=== PATIENT | male | born 1960 | race Caucasian/White ===

== ENCOUNTER → 2016-11-22 | Outpatient (CLI) | payer MEDICARE ==
--- NOTE | 2016-11-22 11:57 | KCIC ---
Hepatic Doppler ultrasound HISTORY: Transaminase elevation. TECHNIQUE: Grayscale, color Doppler and duplex analysis. FINDINGS: The liver demonstrates coarse echogenicity compatible with fatty infiltration. Liver measures 17 cm longitudinal. The study accuracy is compromised by large body habitus and overlying bowel gas. The proximal aorta is not visualized. Mid to distal aorta demonstrate no evidence of an aneurysm. Inferior vena cava appears grossly patent where visualized. The hepatic veins demonstrate hepatofugal flow. The portal veins demonstrate normal hepatopedal flow. Hepatic artery velocity is 84 cm/s. The spleen measures 13.4 cm, mildly enlarged. IMPRESSION: 1. Coarse echogenicity of the liver compatible with fatty infiltration. 2. Mild splenomegaly. Electronically signed by: Eugenio Stephens MD (11/22/2016 11:53 AM) [id number]
== END | disposition home or self-care (01) ==
LOC: KCIC US 07:45
PROVIDERS: ATTEND Family Medicine
DX: R74.0 Nonspecific elevation of levels of transaminase and lactic acid dehydrogenase [LDH] (principal); K76.0 Fatty (change of) liver, not elsewhere classified; R16.1 Splenomegaly, not elsewhere classified
CPT/HCPCS: 93975

== ENCOUNTER → 2021-02-01 | Outpatient (CLI) | payer BC, MEDICARE ==
--- NOTE | 2021-02-01 09:55 | KCIC ---
EXAMINATION: US ABDOMEN COMPLETE INDICATION: 60 years, Male, elevated liver enzymes. COMPARISON: Ultrasound dated 11/22/2016 TECHNIQUE: Grayscale, color Doppler and limited spectral Doppler images of the abdomen were obtained. FINDINGS: Poorly visualized midline structures due to overlying bowel gas. LIVER: SIZE (LENGTH): 17.6 cm. ECHOGENICITY: Increased. PARENCHYMA: Mild heterogeneous echotexture. No discrete focal lesion. INTRAHEPATIC BILE DUCTS: Nondilated. PORTAL VEIN: Patent with normal hepatopedal flow. GALLBLADDER: GALLBLADDER WALL THICKNESS: 2 mm MORPHOLOGY: Normal morphology. No wall hyperemia or pericholecystic free fluid. LUMEN: Normal. COMMON BILE DUCT DIAMETER: 2.4 mm RIGHT KIDNEY: Right nephrectomy changes. LEFT KIDNEY: MEASURES: 14.1 cm in length MORPHOLOGY/PARENCHYMA: Normal corticomedullary differentiation with no shadowing calculus or discrete masses. COLLECTING SYSTEM: No hydronephrosis. SPLEEN: SIZE (LENGTH): 12.2 cm PARENCHYMA: Unremarkable. PANCREAS: VISUALIZED PORTIONS: Body. APPEARANCE: Within normal limits. OTHER: RETROPERITONEUM, INFERIOR VENA CAVA: Normal caliber. AORTA: Normal caliber measures up to 1.5 cm FLUID:No free fluid. IMPRESSION: 1. Moderate to severe diffuse hepatic steatosis, essentially unchanged since prior exam. 2. No biliary ductal dilation. Electronically signed by: Patrick Muñoz MD (02/01/2021 9:53 AM) [id number]
== END ==
LOC: KCIC US 08:06
PROVIDERS: ATTEND Family Medicine
DX: K76.0 Fatty (change of) liver, not elsewhere classified (principal); Z90.5 Acquired absence of kidney
CPT/HCPCS: 76700